=== PATIENT | female | born 1990 | race Caucasian/White ===

== ENCOUNTER 2019-05-09 12:29 | Emergency (ER) | payer OTHER, BC ==
[~2019-05-09] VITALS: Ht 162.6 cm; Wt 77.3 kg
--- NOTE | 2019-05-09 13:35 | REP ---
Left elbow series: Four views. History: Trauma. Findings: Four views of the left elbow demonstrate normal bones, joints, and soft tissues. No fracture or subluxation is seen. There is no evidence of joint effusion. Impression: Negative radiographs left elbow. Electronically Signed by Herson Montoya MD 05/09/2019 01:27 P
[2019-05-09] MEDS ORDERED: SILVER SULFADIAZINE 1% CR 50 GM JAR TOP ONE (13:45)
[2019-05-09 13:55] VITALS: BP 133/92
[2019-05-09] MEDS ORDERED: SILV1CRE60 TOP (14:06)
== END 2019-05-09 14:17 | disposition home or self-care (01) ==
LOC: M ED 12:29
DX: S50.02XA Contusion of left elbow, initial encounter (principal); S13.4XXA Sprain of ligaments of cervical spine, initial encounter; T22.012A Burn of unspecified degree of left forearm, initial encounter; T65.91XA Toxic effect of unspecified substance, accidental (unintentional), initial encounter; V43.52XA Car driver injured in collision with other type car in traffic accident, initial encounter; Y92.9 Unspecified place or not applicable; Y93.9 Activity, unspecified; Y99.9 Unspecified external cause status; Z91.040 Latex allergy status

== ENCOUNTER → 2019-09-11 | Outpatient (REF) | payer OTHER, BC ==
[~2019-09-11] MED LIST: SILV1CRE60 TOP
== END ==
LOC: M LAB REF 16:09
PROVIDERS: ATTEND Nurse Practitioner Family
DX: N91.2 Amenorrhea, unspecified (principal)

== ENCOUNTER → 2020-02-19 | Outpatient (CLI) | payer BC ==
--- NOTE | 2020-02-27 09:29 | REP ---
INDICATION: ANATOMY/Z34.82. Repeat dictation. This study is acquired on 19 February 2020 and is presented to me for dictation on 27 February 2020. COMPARISON: Comparison sonography December 02, 2019.. TECHNIQUE: Transabdominal obstetric sonography. FINDINGS: Scanning through the gravid uterus demonstrates a viable single intrauterine gestation in transverse, head to the maternal left lie. motion is observed and heart rate is recorded at 146 beats per minute. A anterior placenta is seen, grade 0, without evidence of placenta previa. Amniotic fluid is subjectively normal. Closed cervical length is measured at 3.2 cm transabdominally. No extrauterine abnormality is observed. Amniotic fluid is subjectively normal. No anomaly is seen. The following anatomic structures are identified and felt to be sonographically unremarkable: cranium, choroid plexus, cavum, cerebellum and posterior fossa, face and profile, lungs, four-chamber heart with left ventricular outflow tract views, diaphragm, left-sided stomach, abdominal wall cord insertion, three-vessel umbilical cord, kidneys and bladder, spine, and upper and lower extremities. Right ventricular outflow tract visualization is less than optimal due to position. Biometry chart: BPD 5.5 cm, 22 weeks 6 days Head circumference 20.6 cm, 22 weeks 5 days Abdominal circumference 16.4 cm, 21 weeks 3 days Femur length 3.6 cm, 21 weeks 4 days Humeral length 3.4 cm, 21 weeks 3 days HC AC ratio 1.25) 1.0421.23) Cephalic index normal 0.74 estimated weight 441 g, 0 lb 15 oz, 24th percentile for 22 weeks 1 day IMPRESSION: Viable single intrauterine gestation at 22 weeks 0 days by today's composite sonographic criteria. DWIGHT by today's sonography June 24, 2020. No complication identified. <Electronically signed by William Montoya > 02/27/20 [id number]
== END ==
LOC: M WHC 07:49
PROVIDERS: ATTEND Advanced Practice Midwife
DX: O32.2XX0 Maternal care for transverse and oblique lie, not applicable or unspecified (principal); Z36.89 Encounter for other specified antenatal screening; Z3A.22 22 weeks gestation of pregnancy

== ENCOUNTER → 2020-03-16 | Outpatient (CLI) | payer BC ==
--- NOTE | 2020-03-16 09:47 | REP ---
INDICATION: F/U ANATOMY-R VENTRICULAR OUTFLOW TRACT COMPARISON: 02/19/2020 TECHNIQUE: Transabdominal obstetrical ultrasound with color Doppler evaluation. FINDINGS: Examination demonstrates a single live intrauterine in transverse presentation. motion is identified by technologist. Placenta is noted anterior and grade 0 without evidence for placenta previa or abruption. Amniotic fluid volume is normal. Cervix measures 3.1 cm in length and appears closed.. Gestational age by LMP 25 weeks 6 days with DWIGHT 06/23/2020. Gestational age by current measurements 26 weeks 1 day with DWIGHT 06/21/2020. FHR equals 150 beats per minute. Estimated weight 843 grams (32ndpercentile). Anatomical assessment is again suboptimal due to positioning and cardiac ventricular outflow tracts are limited in evaluation. IMPRESSION: Single live intrauterine in transverse presentation demonstrating appropriate interval growth. Anatomical assessment is once again limited in evaluation due to positioning. No obvious gross abnormalities are identified. <Electronically signed by Cesar Red > 03/16/20 0932
== END ==
LOC: M WHC 08:16
PROVIDERS: ATTEND Obstetrics & Gynecology
DX: Z34.82 Encounter for supervision of other normal pregnancy, second trimester (principal)

== ENCOUNTER → 2020-03-29 | Outpatient (CLI) | payer BC ==
--- NOTE | 2020-03-29 17:46 | REP ---
INDICATION: F/U ANATOMY COMPARISON: 03/16/2020 TECHNIQUE: Transabdominal obstetrical ultrasound with color Doppler evaluation. FINDINGS: Examination demonstrates a single live intrauterine in cephalic presentation. motion is identified by technologist. Placenta is noted anterior and grade 2 without evidence for placenta previa or abruption. Amniotic fluid volume is normal. Cervix measures 3.4 cm in length and appears closed.. Gestational age by LMP twenty-seven weeks 5 days with DWIGHT 06/23/2020. Gestational age by current measurements 29 weeks 0 days with DWIGHT 06/14/2020. FHR equals 144 beats per minute. SILAS: 18.0 cm Estimated weight 1180 grams (55thpercentile). Anatomical assessment demonstrates normal structures including right cardiac ventricular outflow tract. IMPRESSION: Single live intrauterine in cephalic presentation demonstrating appropriate estimated weight. In conjunction with prior examination anatomical assessment is complete and normal. <Electronically signed by Cesar Red > 03/29/20 [id number]
== END ==
LOC: M WHC 11:52
PROVIDERS: ATTEND Obstetrics & Gynecology
DX: Z36.2 Encounter for other antenatal screening follow-up (principal); Z3A.29 29 weeks gestation of pregnancy

== ENCOUNTER → 2020-04-06 | Outpatient (CLI) | payer OTHER, BC ==
[2020-04-06 12:10] LABS: HEMATOCRIT 33.2 % (36.0-47.0); HEMOGLOBIN 10.6 g/dl (12.0-15.5); MEAN CORPUSCULAR HEMOGLOBIN 31.4 pg (27.0-33.0); MEAN CORPUSCULAR HGB CONC 31.9 g/dl (32.0-36.5); MEAN CORPUSCULAR VOLUME 98.2 fl (80.0-96.0); PLATELET COUNT, AUTOMATED 364 10^3/uL (150-450); RED BLOOD COUNT 3.38 10^6/uL (4.00-5.40); WHITE BLOOD COUNT 11.6 10^3/uL (4.0-10.0)
== END ==
LOC: M WUC 08:26
PROVIDERS: ATTEND Obstetrics & Gynecology
DX: Z34.82 Encounter for supervision of other normal pregnancy, second trimester (principal)

== ENCOUNTER → 2020-04-07 | Outpatient (CLI) | payer SELFPAY | LOC: M LABSMTC 11:46 | PROVIDERS: ATTEND Pediatrics | DX: Z20.822 Contact with and (suspected) exposure to COVID-19 (principal) ==

== ENCOUNTER → 2020-04-12 | Outpatient (CLI) | payer SELFPAY | LOC: M LABSMTC 13:50 | PROVIDERS: ATTEND Pediatrics | DX: Z20.822 Contact with and (suspected) exposure to COVID-19 (principal) ==

== ENCOUNTER → 2020-05-25 | Outpatient (REF) | payer OTHER | LOC: M LAB REF 12:29 | PROVIDERS: ATTEND Advanced Practice Midwife | DX: Z34.03 Encounter for supervision of normal first pregnancy, third trimester (principal) ==

== ENCOUNTER 2020-06-17 15:01 | Inpatient (IN) | payer BC, OTHER ==
[2020-06-17] VITALS (7 sets, daily range): BP systolic 117–144; BP diastolic 60–79
[~2020-06-17] VITALS: Ht 162.6 cm; Wt 87.4 kg
[2020-06-17] MEDS ORDERED: LR 1,000 ML IV ONE (15:45)
[2020-06-17 16:05] LABS: HEMATOCRIT 33.7 % (36.0-47.0); HEMOGLOBIN 10.4 g/dl (12.0-15.5); MEAN CORPUSCULAR HEMOGLOBIN 27.2 pg (27.0-33.0); MEAN CORPUSCULAR HGB CONC 30.9 g/dl (32.0-36.5); MEAN CORPUSCULAR VOLUME 88.2 fl (80.0-96.0); PLATELET COUNT, AUTOMATED 372 10^3/uL (150-450); RED BLOOD COUNT 3.82 10^6/uL (4.00-5.40); WHITE BLOOD COUNT 13.8 10^3/uL (4.0-10.0)
[2020-06-17] MEDS: LR 1,000 ML IV SCH ×2 (16:16→20:03)
[2020-06-17] MEDS: miSOPROStol 50MCG 1/2 TABLET PO SCH ×2 (16:16→20:17)
[2020-06-17 16:31] LABS: ALT/SGPT 15 U/L (12-78); BILIRUBIN,TOTAL < 0.1 MG/DL (0.2-1.0); CREATININE FOR GFR 0.61 MG/DL (0.55-1.30); GLOMERULAR FILTRATION RATE > 60.0 (>60); LDH LACTATE DEHYDROGENASE 223 U/L (84-246); URIC ACID 3.8 MG/DL (2.6-6.0)
[2020-06-17 16:40] LABS: APPEARANCE, URINE HAZY (CLEAR); BACTERIA, URINE AUTO 1+ (NEGATIVE); BILIRUBIN, URINE AUTO NEGATIVE (NEGATIVE); BLOOD, URINE BLOOD NEGATIVE (NEGATIVE); COLOR, URINE YELLOW (YELLOW); GLUCOSE, URINE (UA) AUTO NEGATIVE (NEGATIVE); KETONE, URINE AUTO NEGATIVE (NEGATIVE); LEUKOCYTE ESTERASE, URINE AUTO NEGATIVE (NEGATIVE); NITRITE, URINE AUTO NEGATIVE (NEGATIVE); PROTEIN, URINE AUTO NEGATIVE (NEGATIVE); RBC, URINE AUTO 0 /HPF (0-3); SPECIFIC GRAVITY URINE AUTO 1.005 (1.002-1.035); SQUAMOUS EPITHELIAL CELL UR AU 14 /HPF (0-6); UROBILINOGEN, URINE AUTO 0.2 mg/dL (0.0-2.0); WBC, URINE AUTO 2 /HPF (0-3)
[2020-06-18] VITALS (40 sets, daily range): BP systolic 93–144; BP diastolic 49–99
[2020-06-18] MEDS: miSOPROStol 50MCG 1/2 TABLET PO SCH ×2 (00:26→04:43)
[2020-06-18] MEDS: LR 1,000 ML IV SCH ×2 (04:06→08:05)
[2020-06-18] MEDS ORDERED: FENTANYL 2MCG/ML ROPIVACAINE 0.2% IN 0.9% NACL 100ML IVBAG As Ordered ONE (08:25)
[2020-06-18] MEDS ORDERED: diphenhydrAMINE 50MG/ML VIAL (J1200) IV PRN (08:35)
[2020-06-18] MEDS ORDERED: EPIDURAL/PCA KEYS XX PRN (08:35)
[2020-06-18] MEDS ORDERED: EPIDURAL COMMENT XX SCH (08:35)
[2020-06-18] MEDS ORDERED: LACTATED RINGER'S 1000 ML IV PRN (08:35)
[2020-06-18] MEDS ORDERED: FENTANYL/ROPIVACAINE/NACL BAG 100 ML EPIDURAL SCH (08:35)
[2020-06-18] MEDS ORDERED: REFRIGERATOR IV KEYS XX PRN (08:35)
[2020-06-18] MEDS ORDERED: ONDANSETRON 4MG/2ML VIAL IV PRN (08:35)
[2020-06-18] MEDS ORDERED: NALOXONE INJ 0.4MG/1ML VIAL (J2310 PER 1MG) IV PRN (08:35)
[2020-06-18] MEDS ORDERED: OXYTOCIN DRIP 30 UNITS in IV 1 EA IV SCH ×2 (09:25→16:55)
[2020-06-18] MEDS: ePHEDrine SULFATE 25 MG/5 ML(5MG/ML) SYRINGE IV PRN ×3 (10:02→10:09)
[2020-06-18] MEDS: ePHEDrine SULFATE 25 MG/5 ML(5MG/ML) SYRINGE IV SCH ×4 (12:46→13:09)
[2020-06-18 16:51] LABS: CORD GAS ABE A -9.2; CORD GAS HCO3 A 18.7 MEQ/L; CORD GAS O2 SAT A 60.3 %; CORD GAS PCO2 A 48.5 mmHg; CORD GAS PH A 7.205 UNITS; CORD GAS PO2 A 29.2 mmHg; CORD GAS SBC A 16.4 MEQ/L; CORD GAS TCO2 A 20.2 MEQ/L
[2020-06-18 16:52] LABS: CORD GAS ABE V -8.3; CORD GAS HCO3 V 18.9 MEQ/L; CORD GAS O2 SAT V 45.6 %; CORD GAS PCO2 V 45.1 mmHg; CORD GAS PH V 7.24 UNITS; CORD GAS PO2 V 22.2 mmHg; CORD GAS SBC V 16.7 MEQ/L; CORD GAS TCO2 V 20.3 MEQ/L
[2020-06-18] MEDS ORDERED: IBUPROFEN 600MG TAB PO PRN (16:55)
[2020-06-18] MEDS ORDERED: ACETAMINOPHEN TAB 650MG DOSE (2X325MG) PO PRN (16:55)
[2020-06-18] MEDS ORDERED: METHYLERGONOVINE MALEATE 0.2 MG TAB PO PRN (16:55)
[2020-06-18] MEDS ORDERED: ANUSOL HC CREAM 30GM TOP PRN (16:55)
[2020-06-18] MEDS ORDERED: DIBUCAINE 1% OINTMENT 30GM TOP PRN (16:55)
[2020-06-18] MEDS ORDERED: MOM 30ML SUSPENSION UDC PO PRN (16:55)
[2020-06-18] MEDS ORDERED: ACETAMINOPHEN 500 MG TAB PO PRN (16:55)
[2020-06-18] MEDS ORDERED: RHOGAM 300 MCG (1500 IU) INJ (J2790) IM SCH (16:55)
[2020-06-18] MEDS ORDERED: MEASLES,MUMPS,RUBELLA VACCINE INJ (MMR-II) (90707) SC SCH (16:55)
--- NOTE | 2020-06-18 17:25 | DN ---
DELIVERY NOTE DATE OF DELIVERY: 06/18/2020 Cheryl is a 29-year-old female, 1, para 0, who was admitted at 39-1/7 weeks gestation for an induction with elevated blood pressure. She underwent Cytotec followed by spontaneous rupture of membranes and Pitocin augmentation. She then progressed to fully dilated after an epidural. Delivered a live male in right occiput anterior position with a nuchal cord times one, scores 9 and 9, weight 7 pounds 4 ounces. Placenta delivered spontaneously intact, 3-vessel cord. A second-degree midline perineal laceration noted, which was repaired using 2-0 chromic. Estimated blood loss 300 mL. Both mother and baby in stable condition.
--- NOTE | 2020-06-18 17:25 | HPE ---
HISTORY AND PHYSICAL DATE OF ADMISSION: 06/17/2020 Pilar is a 29-year-old female, 1, para 0 with an estimated date of confinement (EDC) of 06/23/2020, estimated gestational age (EGA) 39-1/7 weeks gestation, who is being admitted after being seen in the office with elevated blood pressure in the 160s and 102. Given that she was term and after extensive counseling, a decision was made to proceed with delivery, as we could not rule out preeclampsia. Her record reviewed. LABORATORY: Blood type is B positive, rubella immune, hepatitis negative, HIV negative, GC/chlamydia negative. One-hour sugar testing was within normal limits.. Her GBS is negative. PAST MEDICAL HISTORY: Denies. PAST SURGICAL HISTORY: Denies. SOCIAL HISTORY: She is . Denies any alcohol, drugs, or cigarette smoking. REVIEW OF SYSTEMS: Unremarkable. FAMILY HISTORY: Significant for heart disease. MEDICATIONS: vitamin. ALLERGIES: No known drug allergies; however, she has an allergy to latex. PHYSICAL EXAMINATION: HEENT: Within normal limits. ABDOMEN: Soft, nontender, nondistended. EXTREMITIES: No clubbing, cyanosis, or edema. VAGINAL EXAM: Closed, thick, posterior. Fetus floating vertex. Tracing reviewed. Category 1 tracing. ASSESSMENT: 1. Intrauterine at 39-1/7 weeks gestation. 2. Elevated blood pressures. Cannot rule out pre-eclampsia. PLAN: Admit to labor and delivery. Routine labs sent. Induction process discussed. Patient will proceed with a Cytotec induction. Pain management discussed. Patient opts for an epidural. Will continue to monitor. Anticipate delivery.
[2020-06-18] MEDS: DOCUSATE SODIUM 100MG CAPSULE PO SCH (21:00)
[2020-06-19] MEDS: IBUPROFEN 800 MG TAB PO PRN ×3 (05:16→20:51)
[2020-06-19 05:56] VITALS: BP 131/82
--- NOTE | 2020-06-19 07:24 | IPNPDOC ---
Text Note Date of Service The patient was seen on 06/19/20. NOTE PP#1 Feels well. Happy. . OOB independently. Voiding VSS, afebrile, normotensive Breasts soft,nipples intact Fundus firm, NT, down 1FB Perineum well approximated without edema Lochia rubra light without odor Legs negative PP #1 Routine care. Anticipate D/C in am VS,Fishbone, I+O VS, Fishbone, I+O Vital Signs Date Time Temp Pulse Resp B/P (MAP) Pulse Ox O2 Delivery O2 Flow Rate FiO2 06/19/20 05:56 97.2 95 18 131/82 (98) 06/17/20 15:17 98 I&O- Last 24 Hours up to 6 AM 06/19/20 06:00 Intake Total 2697 ml Output Total 1475 ml Balance 1222 ml Archana Whitney CNM Jun 19, 2020 07:22
[2020-06-19] MEDS: DOCUSATE SODIUM 100MG CAPSULE PO SCH ×2 (09:26→20:50)
[2020-06-19] MEDS: PRENATAL VITAMINS CHEWABLE TABLET PO SCH (09:26)
[2020-06-19 17:48] VITALS: BP 127/74
[2020-06-20 06:23] VITALS: BP 138/91
[2020-06-20] MEDS: DOCUSATE SODIUM 100MG CAPSULE PO SCH (08:14)
[2020-06-20] MEDS: PRENATAL VITAMINS CHEWABLE TABLET PO SCH (08:14)
--- NOTE | 2020-06-20 09:14 | IPNPDOC ---
Progress Note Date of Service: Jun 20, 2020 Day#: 2 Progress Note SUBJECT: Status post , complicated by gestational hypertension. She has been ambulating, voiding spontaneously without issue and tolerating regular diet. Lochia decreasing/minimal. Pain is well-controlled. Denies headache, visual changes, right upper quadrant pain, shortness breath or chest pain. OBJECTIVE: VITAL SIGNS: Within normal limits, intermittent, mild hypertension afebrile. Alert and oriented times three. Abdomen: Fundus firm at U-2. Soft, NTTP. ASSESSMENT: Status post uncomplicated spontaneous vaginal delivery. Vitals predominantly within normal limits, afebrile, hemodynamically stable with no evidence of infection. PLAN: Discharge to home today. Tylenol and Motrin for pain. Routine instructions/precautions reviewed. Routine PP visit in 6 weeks in clinic. VS, I&O, 24H, Fishbone Vital Signs/I&O Vital Signs Date Time Temp Pulse Resp B/P (MAP) Pulse Ox O2 Delivery O2 Flow Rate FiO2 06/20/20 06:23 97.5 83 18 138/91 (107) 06/19/20 17:48 99 Room Air I&O- Last 24 Hours up to 6 AM 06/20/20 06:00 Intake Total 500 ml Balance 500 ml LINDA CORTEZ DO Jun 20, 2020 09:14
== END 2020-06-20 11:10 | disposition home or self-care (01) | DRG 560 ==
LOC: M LDI 15:01 → M OBS 06-18 19:30
PROVIDERS: ADMIT Obstetrics & Gynecology; ATTEND Obstetrics & Gynecology
PROC: 3E0P7GC Introduction of Other Therapeutic Substance into Female Reproductive, Via Natural or Artificial Opening (ICD-10-PCS; 2020-06-17)
PROC: 10E0XZZ Delivery of Products of Conception, External Approach (ICD-10-PCS; principal; 2020-06-18)
PROC: 0KQM0ZZ Repair Perineum Muscle, Open Approach (ICD-10-PCS; 2020-06-18)
DX: O13.4 Gestational [pregnancy-induced] hypertension without significant proteinuria, complicating childbirth (principal); Z3A.39 39 weeks gestation of pregnancy; O70.1 Second degree perineal laceration during delivery; Z37.0 Single live birth; O69.81X0 Labor and delivery complicated by cord around neck, without compression, not applicable or unspecified

== ENCOUNTER 2020-11-27 15:49 | Emergency (ER) | payer BC, OTHER ==
[~2020-11-27] VITALS: Ht 162.6 cm; Wt 76.8 kg
[2020-11-27] MEDS ORDERED: AUGM875T28 PO (15:55)
[2020-11-27 17:19] LABS: BASO # 0.1 10^3/uL (0.0-0.2); BASO % 0.3 % (0.0-1.0); EOS # 0.2 10^3/uL (0.0-0.5); EOS % 0.9 % (0.0-3.0); HEMATOCRIT 39.1 % (36.0-47.0); HEMOGLOBIN 12.8 g/dl (12.0-15.5); LYMPH # 1.2 10^3/uL (1.5-5.0); LYMPH % 4.9 % (24.0-44.0); MEAN CORPUSCULAR HEMOGLOBIN 30.4 pg (27.0-33.0); MEAN CORPUSCULAR HGB CONC 32.7 g/dl (32.0-36.5); MEAN CORPUSCULAR VOLUME 92.9 fl (80.0-96.0); MONO # 1.2 10^3/uL (0.0-0.8); MONO % 4.8 % (2.0-8.0); NEUTROPHILS # 21.6 10^3/uL (1.5-8.5); NEUTROPHILS % 88.2 % (36.0-66.0); PLATELET COUNT, AUTOMATED 295 10^3/uL (150-450); RED BLOOD COUNT 4.21 10^6/uL (4.00-5.40); WHITE BLOOD COUNT 24.4 10^3/uL (4.0-10.0)
[2020-11-27] MEDS ORDERED: NS 1,000 ML IV ONE (17:35)
[2020-11-27 17:41] LABS: ERYTHROCYTE SEDIMENTATION RATE 49 mm/hr (0-20)
[2020-11-27 17:51] LABS: BLOOD UREA NITROGEN 9 MG/DL (7-18); CALCIUM LEVEL 8.8 MG/DL (8.5-10.1); CARBON DIOXIDE LEVEL 22 MEQ/L (21-32); CHLORIDE LEVEL 108 MEQ/L (98-107); CREATININE FOR GFR 0.97 MG/DL (0.55-1.30); GLOMERULAR FILTRATION RATE > 60.0 (>60); GLUCOSE, FASTING 96 MG/DL (70-100); POTASSIUM SERUM 3.8 MEQ/L (3.5-5.1); SODIUM LEVEL 139 MEQ/L (136-145)
[2020-11-27] MEDS ORDERED: CLINDAMYCIN 900 MG in IV 1 EA IV ONE (18:00)
[2020-11-27] MEDS ORDERED: ONDANSETRON 4MG/2ML VIAL IV ONE (19:40)
[2020-11-27] MEDS ORDERED: CLIN300C6 PO (19:44)
[2020-11-27] MEDS ORDERED: CLIN-30 PO (19:44)
[2020-11-27 19:55] VITALS: BP 131/58
--- NOTE | 2020-11-27 20:13 | REPVR ---
PROCEDURE INFORMATION: Exam: US Left Breast Limited; Cellulitis or Abscess Evaluation Exam date and time: 11/27/2020 5:56 PM Age: 30 years old Clinical indication: Other: Red hot; Patient HX: Breast feeding, fever and red area on lt breast; Additional info: Rule out abcess TECHNIQUE: Imaging protocol: Left breast ultrasound. Exam limited to the quadrant(s) of clinical concern. Exam focused on the evaluation of cellulitis or abscess. Exam is an emergent request and a non-BIRADS study. COMPARISON: No relevant prior studies available. FINDINGS: Breasts: Soft tissue edema and superficial skin thickening. No fluid collections. IMPRESSION: No evidence of abscess. Cellulitis with soft tissue edema. Electronically signed by: Neil Prasad On 11/27/2020 20:12:46 PM
== END 2020-11-27 20:20 | disposition home or self-care (01) ==
LOC: M ED 15:49
DX: N61.0 Mastitis without abscess (principal); R50.9 Fever, unspecified; Z91.040 Latex allergy status
CPT/HCPCS: 36415; 76642; 80048; 83605; 85025; 85652; 87040; 96361; 96365; 96366; 99284; J2405

== ENCOUNTER → 2021-08-16 | Outpatient (REF) | payer BC, OTHER ==
[~2021-08-16] MED LIST changes: +AUGM875T28 PO; +CLIN-250 PO; +CLIN-30 PO
[2021-08-16 12:41] LABS: HEMATOCRIT 39.4 % (36.0-47.0); HEMOGLOBIN 12.7 g/dl (12.0-15.5); MEAN CORPUSCULAR HEMOGLOBIN 29.5 pg (27.0-33.0); MEAN CORPUSCULAR HGB CONC 32.2 g/dl (32.0-36.5); MEAN CORPUSCULAR VOLUME 91.4 fl (80.0-96.0); PLATELET COUNT, AUTOMATED 353 10^3/uL (150-450); RED BLOOD COUNT 4.31 10^6/uL (4.00-5.40)
[2021-08-16 14:04] LABS: HCG, SERUM QUANTITATIVE 9555 MIU/ML; HEPATITIS B SURFACE ANTIGEN NEGATIVE (NEGATIVE); HEPATITIS C VIRUS ABY INDEX 0.1 INDEX (<0.8); HIV 1&2 SCREEN CENTAUR NEGATIVE (NEGATIVE)
== END ==
LOC: M LAB REF 12:08
PROVIDERS: ATTEND Obstetrics & Gynecology
DX: O36.80X0 Pregnancy with inconclusive fetal viability, not applicable or unspecified (principal); Z32.01 Encounter for pregnancy test, result positive

== ENCOUNTER → 2021-09-12 | Outpatient (REF) | payer OTHER, BC ==
[2021-09-12 13:33] LABS: INFLUENZA A AMPLIFICATION NEGATIVE (NEGATIVE); INFLUENZA B AMPLIFICATION NEGATIVE (NEGATIVE)
== END ==
LOC: M LAB REF 12:17
PROVIDERS: ATTEND Physician Assistant Medical
DX: J06.9 Acute upper respiratory infection, unspecified (principal)

== ENCOUNTER → 2021-10-04 | Outpatient (REF) | payer OTHER, BC | LOC: M LAB REF 12:07 | PROVIDERS: ATTEND Advanced Practice Midwife | DX: Z34.81 Encounter for supervision of other normal pregnancy, first trimester (principal) ==

== ENCOUNTER → 2022-01-26 | Outpatient (REF) | payer OTHER, BC | LOC: M LAB REF 12:10 | PROVIDERS: ATTEND Nurse Practitioner Adult Health | DX: Z34.82 Encounter for supervision of other normal pregnancy, second trimester (principal) ==

== ENCOUNTER → 2022-03-16 | Outpatient (REF) | payer OTHER, BC | LOC: M LAB REF 17:13 | PROVIDERS: ATTEND Obstetrics & Gynecology | DX: Z34.83 Encounter for supervision of other normal pregnancy, third trimester (principal) ==

== ENCOUNTER → 2022-03-22 | Outpatient (CLI) | payer BC, OTHER ==
[2022-03-22 13:11] LABS: BASO % 0.2 % (0.0-1.0); EOS # 0.1 10^3/uL (0.0-0.5); EOS % 0.5 % (0.0-3.0); HEMATOCRIT 32.4 % (36.0-47.0); HEMOGLOBIN 9.7 g/dl (12.0-15.5); LYMPH # 2.5 10^3/uL (1.5-5.0); LYMPH % 20.5 % (24.0-44.0); MEAN CORPUSCULAR HEMOGLOBIN 25.6 pg (27.0-33.0); MEAN CORPUSCULAR HGB CONC 29.9 g/dl (32.0-36.5); MEAN CORPUSCULAR VOLUME 85.5 fl (80.0-96.0); MONO # 0.7 10^3/uL (0.0-0.8); MONO % 5.6 % (2.0-8.0); NEUTROPHILS # 8.9 10^3/uL (1.5-8.5); NEUTROPHILS % 72.3 % (36.0-66.0); PLATELET COUNT, AUTOMATED 378 10^3/uL (150-450); RED BLOOD COUNT 3.79 10^6/uL (4.00-5.40); WHITE BLOOD COUNT 12.3 10^3/uL (4.0-10.0)
[2022-03-22 13:32] LABS: URIC ACID 3.6 MG/DL (3.1-7.8)
[2022-03-22 13:34] LABS: LDH LACTATE DEHYDROGENASE 188 U/L (120-246)
[2022-03-22 13:35] LABS: ALT/SGPT 11 U/L (7.0-40); AST/SGOT 15 U/L (<34); BILIRUBIN,TOTAL 0.2 MG/DL (0.3-1.2); CREATININE FOR GFR 0.54 MG/DL (0.55-1.30); GLOMERULAR FILTRATION RATE > 60.0 (>60)
[2022-03-22 13:39] LABS: URINE TOTAL PROTEIN 15.1 MG/DL (0-14)
[2022-03-22 13:44] LABS: CREATININE, URINE 39.4 MG/DL
== END ==
LOC: M LAB 12:23
PROVIDERS: ATTEND Obstetrics & Gynecology
DX: O14.93 Unspecified pre-eclampsia, third trimester (principal)

== ENCOUNTER 2022-03-28 07:35 | Inpatient (IN) | payer BC, OTHER ==
[~2022-03-28] VITALS: Ht 160 cm; Wt 85.3 kg
[2022-03-28] VITALS (35 sets, daily range): BP systolic 110–191; BP diastolic 57–115
[2022-03-28] MEDS ORDERED: HOME MED LIST COMPLETE! XX SCH (08:35)
[2022-03-28 08:42] LABS: HEMATOCRIT 31.6 % (36.0-47.0); HEMOGLOBIN 9.6 g/dl (12.0-15.5); MEAN CORPUSCULAR HEMOGLOBIN 25.5 pg (27.0-33.0); MEAN CORPUSCULAR HGB CONC 30.4 g/dl (32.0-36.5); PLATELET COUNT, AUTOMATED 362 10^3/uL (150-450); RED BLOOD COUNT 3.76 10^6/uL (4.00-5.40); WHITE BLOOD COUNT 12.7 10^3/uL (4.0-10.0)
[2022-03-28] MEDS: LR 1,000 ML IV SCH ×2 (08:55→16:23)
[2022-03-28] MEDS: miSOPROStol 50MCG 1/2 TABLET PO SCH ×2 (08:55→13:15)
[2022-03-28 09:04] LABS: URIC ACID 4.3 MG/DL (3.1-7.8)
[2022-03-28 09:06] LABS: LDH LACTATE DEHYDROGENASE 208 U/L (120-246)
[2022-03-28 09:07] LABS: ALT/SGPT 10 U/L (7.0-40); AST/SGOT 14 U/L (<34); BILIRUBIN,TOTAL 0.2 MG/DL (0.3-1.2); GLOMERULAR FILTRATION RATE > 60.0 (>60)
[2022-03-28] MEDS ORDERED: OXYTOCIN DRIP 30 UNITS in IV 1 EA IV SCH ×2 (16:35→19:45)
[2022-03-28] MEDS ORDERED: EPIDURAL/PCA KEYS XX PRN (17:00)
[2022-03-28] MEDS ORDERED: ePHEDrine SULFATE 25 MG/5 ML(5MG/ML) SYRINGE IVP PRN (17:00)
[2022-03-28] MEDS ORDERED: LR 500 ML IV PRN (17:00)
[2022-03-28] MEDS ORDERED: FENTANYL/ROPIVACAINE/NACL BAG 100 ML EPIDURAL SCH (17:00)
[2022-03-28] MEDS ORDERED: NALOXONE INJ 0.4MG/1ML VIAL IV PRN (17:00)
[2022-03-28] MEDS ORDERED: diphenhydrAMINE 50MG/ML VIAL IV PRN (17:00)
[2022-03-28] MEDS ORDERED: ONDANSETRON 4MG 2ML VIAL IV PRN (17:00)
[2022-03-28] MEDS ORDERED: RHOGAM 300MCG (1500IU) INJ IM SCH (19:20)
[2022-03-28] MEDS ORDERED: ACETAMINOPHEN TAB 650MG DOSE (2X325MG) PO PRN (19:20)
[2022-03-28] MEDS ORDERED: DOCUSATE SODIUM 100MG CAPSULE PO PRN (19:20)
[2022-03-28] MEDS ORDERED: IBUPROFEN 800 MG TAB PO PRN (19:20)
[2022-03-28] MEDS ORDERED: DIBUCAINE 1% OINTMENT 30GM TOP PRN (19:20)
[2022-03-28] MEDS ORDERED: METHYLERGONOVINE MALEATE 0.2 MG TAB PO PRN (19:20)
[2022-03-28] MEDS ORDERED: IBUPROFEN 600MG TAB PO PRN (19:20)
[2022-03-28] MEDS ORDERED: ACETAMINOPHEN 500 MG TAB PO PRN (19:20)
[2022-03-28 19:27] LABS: CORD GAS ABE V -3.8; CORD GAS HCO3 V 23.6 MEQ/L; CORD GAS PH V 7.275 UNITS; CORD GAS PO2 V 35.9 mmHg; CORD GAS SBC V 20.9 MEQ/L; CORD GAS TCO2 V 25.2 MEQ/L
[2022-03-29 05:59] VITALS: BP 117/72
[2022-03-29] MEDS: PRENATAL VITAMINS CHEWABLE TABLET PO SCH (08:05)
[2022-03-29 18:00] VITALS: BP 123/85
[2022-03-30 05:50] VITALS: BP 99/58
[2022-03-30] MEDS ORDERED: MEASLES,MUMPS,RUBELLA VACCINE INJ (MMR-II) SC.IMMUN ONE (09:00)
[2022-03-30] MEDS: PRENATAL VITAMINS CHEWABLE TABLET PO SCH (09:00)
== END 2022-03-30 12:00 | disposition home or self-care (01) | DRG 560 ==
LOC: M LDI 07:35 → M OBS 20:52
PROVIDERS: ADMIT Obstetrics & Gynecology; ATTEND Obstetrics & Gynecology
PROC: 10E0XZZ Delivery of Products of Conception, External Approach (ICD-10-PCS; principal; 2022-03-28)
PROC: 0HQ9XZZ Repair Perineum Skin, External Approach (ICD-10-PCS; 2022-03-28)
PROC: 10907ZC Drainage of Amniotic Fluid, Therapeutic from Products of Conception, Via Natural or Artificial Opening (ICD-10-PCS; 2022-03-28)
PROC: 3E0P7GC Introduction of Other Therapeutic Substance into Female Reproductive, Via Natural or Artificial Opening (ICD-10-PCS; 2022-03-28)
DX: O14.94 Unspecified pre-eclampsia, complicating childbirth (principal); Z3A.37 37 weeks gestation of pregnancy; Z37.0 Single live birth; O70.0 First degree perineal laceration during delivery

== ENCOUNTER → 2025-03-09 | Outpatient (CLI) | payer BC, OTHER | LOC: M EKG 15:15 | PROVIDERS: ATTEND Physician Assistant | DX: R00.2 Palpitations (principal) ==